=== PATIENT | male | born 1985 | race African-American/Black ===

== ENCOUNTER 2021-04-25 10:12 | Emergency (ER) | payer OTHER ==
[~2021-04-25] VITALS: Ht 165.1 cm; Wt 63.5 kg
[2021-04-25 10:20] VITALS: TEMP 100.3
[2021-04-25 11:25] LABS: PLATELET COUNT 143 K/uL (142-355)
[2021-04-25 11:27] LABS: POTASSIUM 4.5 mmol/L (3.6-5.2); SODIUM 137 mmol/L (136-145)
[2021-04-25 11:44] LABS: PARTIAL THROMBOPLASTIN TIME 27.8 SECONDS (24.5-33.6)
[2021-04-25 13:48] VITALS: BP 128/84
== END 2021-04-25 13:48 | disposition home or self-care (01) ==
LOC: ED 10:12
PROVIDERS: Hospitalist
DX: J06.9 Acute upper respiratory infection, unspecified (principal); R50.9 Fever, unspecified
CPT/HCPCS: 36415; 80053; 82550; 83880; 84484; 85027; 85610; 85730; 93005; 96374; 99284; J1100